=== PATIENT | female | born 1960 | race Caucasian/White ===

== ENCOUNTER 2025-07-25 07:51 | Day surgery (SDC) | payer MEDICARE, MEDICAID ==
--- NOTE | 2025-07-09 14:31 | ELECTROCARDIOGRAPH REPORT ---
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 WATSON Meng Measurements Intervals [place] Rate: 79 P: 61 W[place]: 180 QRS: -12 QRSD: 92 T: 50 QT: 388 QTc: 445 Interpretive Statements Sinus rhythm Ventricular trigeminy Probable left atrial enlargement Borderline low voltage, extremity leads Anteroseptal infarct, old Electronically Signed On 07-09-2025 17:33:[address] WATSON Meng Please click the below link to view image of tracing.
[2025-07-09 14:42] LABS: MEAN PLATELET VOLUME 7.9 FL (7.4-10.4); PRE OP HEMATOCRIT 42.8 % (35.0-45.0); PRE OP HEMOGLOBIN 15.2 g/dL (12.0-16.0); PRE OP PLATELET COUNT 312 X10'3 (140-440); PRE OP WHITE BLOOD COUNT 11.3 10'3 (4.8-10.8); RED CELL DISTRIBUTION WIDTH 14.2 % (11.5-14.5)
[2025-07-09 14:56] LABS: CREATININE 1.23 MG/DL (0.40-0.90); PRE OP ALT 21 U/L (30-65); PRE OP ANION GAP 5 (8-16); PRE OP AST 11 U/L (10-37); PRE OP BILIRUB, TOTAL 0.4 MG/DL (0.0-1.0); PRE OP GLUCOSE 96 MG/DL (70-104); PRE OP POTASSIUM 3.6 MMOL/L (3.4-5.1); PRE OP SODIUM 140 MMOL/L (135-145); TOTAL CARBON DIOXIDE 29.6 MMOL/L (24-32); eGFR 44 ML/MIN
[~2025-07-25] VITALS: Ht 162.6 cm; Wt 82.3 kg
[2025-07-25] VITALS (10 sets, daily range): BP systolic 110–155; BP diastolic 73–92; PULSE 67–95; RESP 9–18; TEMP 97.8; O2SAT 95–99
[2025-07-25] MEDS: ceFAZolin 2gm/dext,iso 50mL 50 ML IV ONE (05:30)
[~2025-07-25 07:51] MED LIST: ATOR20TA66 PO; BUPR1PAT22 TOP; CLON-570 PO; CYCL-1 PO; FURO20TA4 PO; GABA300C PO; LEVO112T5 PO; LOSA100T58 PO; LURA60TA4 PO; QUET25TA36 PO
[2025-07-25] MEDS: ringers solution, lacted 1,000 ML IV SCH (08:52)
[2025-07-25] MEDS ORDERED: LIDOcaine 1% (10mg/ml)w/preservative inj. 20ml MDV ONE (11:01)
[2025-07-25] MEDS ORDERED: methylene blue (5mg/ml) 50mg/10ml ampul IV ONE (11:01)
[2025-07-25] MEDS ORDERED: BUPIVAcaine 0.5% inj/PF 30 ML ONE (11:01)
[2025-07-25] MEDS ORDERED: BUPIVACAINE liposomal/PF 13.3 MG/ML 10mL vial IM ONE ×2 (11:02→11:44)
[2025-07-25] MEDS ORDERED: labetalol 20mg/4ml (5mg/ml) syringe IV PRN (11:30)
[2025-07-25] MEDS ORDERED: morphine 4 MG/ML inj SYRINge IV PRN (11:30)
[2025-07-25] MEDS ORDERED: hydrALAZINE 20mg/ml inj. IV PRN (11:30)
[2025-07-25] MEDS ORDERED: HYDROmorphone/PF 0.2 MG/ML SYRINGE IV PRN (11:30)
[2025-07-25] MEDS ORDERED: ringers solution, lacted 1,000 ML IV SCH (11:30)
[2025-07-25] MEDS ORDERED: ondansetron/PF 4mg/2ml inj IV PRN (11:30)
[2025-07-25] MEDS ORDERED: BUPIVAcaine/PF 2.5mg/ml (0.25%) 10ml vial ONE (11:44)
[2025-07-25] MEDS ORDERED: fentaNYL/PF 50MCG/1 ML 2ML syringe ONE (11:47)
[2025-07-25] MEDS ORDERED: midazolam 1 mg/ML 2ml injection ONE (11:47)
[2025-07-25] MEDS ORDERED: propofol inj 20 ML IV ONE (11:49)
[2025-07-25] MEDS ORDERED: dexamethasone sod phosphate 4mg/ml inj. ONE (13:25)
[2025-07-25] MEDS ORDERED: ondansetron/PF 4mg/2ml inj ONE (13:25)
[2025-07-25] MEDS: HYDROmorphone/PF 0.2 MG/ML SYRINGE IV PRN (14:36)
[2025-07-25] MEDS: acetaminophen 1,000mg/100ml IV 100 ML IV PRN (14:37)
--- NOTE | 2025-07-25 14:42 | OPERATIVE REPORT ---
Operative Report Providers to CC CC: GEORGE IRWIN DO ~ Date of Procedure: Jul 25, 2025 Pre-Operative Diagnosis: Right breast cancer, right atypical ductal hyperplasia, left atypical ducta Post-Operative Diagnosis SAME as PRE-Op Procedure Performed Right breast wireless LAURA nursing clerk localized lumpectomy at 12:00, right breast wire LAURA nursing clerk localized excisional biopsy at 1:00 and right axillary sentinel lymph node biopsy left breast wire localized excisional biopsy at 11:00 Surgeon: Dr. George irwin Technical Support Intern on call pharmacy technician Anesthesiologist: Jose [address] Street Findings: Right breast wire localized lumpectomy/excisional biopsy at 12:00 and 1:00 (two clips markers and two LAURA nursing clerk markers) Right axillary sentinel lymph node x1 Complications None Prosthetics\Implants used: None Estimated Blood Loss: Less than 10 mL Specimen Removed: 1. Right breast wireless localized excisional biopsy/lumpectomy at 12:00 and 1:00 2. Right breast additional superior medial margin 3. Right axillary sentinel lymph node x1 hot and blue 4. Left breast wireless localized excisional biopsy at 11:00 5. Left breast additional superior medial margin Description of Procedure: [place] was seen and evaluated in the office regarding left breast invasive ductal carcinoma. She had an extensive workout with a breast MRI and subsequent biopsies was diagnosed with right breast atypical ductal hyperplasia and left breast atypical ductal hyperplasia. She desired breast conservation and decided to move forward with the two procedures in the right breast and one in the left breast in addition to a sentinel lymph node biopsy of the right axilla. Informed consent was obtained. She had a sentinel lymph node injection this morning prior to arrival to the hospital. She was seen and evaluated in the pre operative holding unit by myself and the anesthesiologist. The right shoulder was marked my initials for the sentinel lymph node biopsy. She was taken in his the operative suite and placed on table in supine position with the arms extended. General anesthesia was administered with an LMA. A pecs one and two block was also administered on the right side. Both breasts were scanned with the LAURA probe in two hot areas were noted in the right breast and one in the left breast. I scanned the right axilla with the gamma probe and detected a hot signal from the Lymphoseek injection. 3 mL of methylene blue dye was injected subareolar in the right breast and massaged for 4 minutes. The patient was prepped and draped in a sterile fashion a time-out was performed and agreed upon. A proposed incision was made in the upper quadrant of the right breast the area was injected with 1% lidocaine. An incision was made with a 10 blade and extended through the deep dermal layer with the cutting on the cautery. Lenore retractors were placed on the edges of the incision as I dissected into the subcutaneous space and then switched to Yee retractors. The LAURA nursing clerk probe was used to guide the dissection by monitoring the signal. There was a slight difficulty differentiating between the two different laura markers. I incised the specimen down to the chest wall and oriented with short stitch superior, long suture lateral, double suture deep and placed it on the specimen radiograph board. The specimen was passed off the field and placed in the fact that trauma seen. There appeared to be to clips and two LAURA markers in the specimen. The medial aspect appeared to be slightly closer to the edge of the margin. This was the 1:00. I excised an additional superior medial margin. The specimen was marked suture at the final margin. Hemostasis was achieved with Bovie electrocautery. I turned my attention to the right axillary sentinel node biopsy. A proposed incision was made with a marking pen in the lower asp ect of the axilla and 1% lidocaine was injected. I made my incision with a 15 blade and dissected through the subcutaneous tissue into the axillary fascia with the cautery. Yee retractors were placed in the axilla as I scanned the axilla with the gamma probe a hot signal was noted and blue lymphatics were detected. The lymph node was secured with a tonsil clamp. And I excised it with the LigaSure. The specimen was removed and it had a count of almost 6000. The lymph node was placed in formalin. I scanned the axilla and there were some minimal inconsistent signal in the right axilla. The cavity was irrigated. Hemovac last product was placed in both the lumpectomy cavity and the axillary cavity. I then undermined some glandular tissue in the cavity for reapproximation of the acquired defect. The defect was reapproximated with 3-0 shelby Vicryl suture. The axillary cavity was approximated with 3-0 Vicryl interrupted sutures of the axillary fascia and the deep dermal layer. The skin was closed on both sites with 3-0 Vicryl interrupted suture and a 4-0 Monocryl running subcuticular stitch. Both incision sites were injected with a combination of Marcaine and Exparel. The Prineo dressing system with mesh and glue was placed on both incisions. I turned my attention to the left breast. Date of proposed incision at the superior aspect of the breast approximately 4 cm from the areolar edge. I scanned that area with the LAURA nursing clerk probe and marked the site with my marking pen. The incision was made with a 10 blade after the injection of 1% lidocaine. I dissected through the deep dermal layer with the cutting on the cautery and hemostasis was achieved with Bovie electrocautery. As I used the LAURA probe to guide the dissection I excised the breast tissue around the targeted signal. Once that was completely excised I removed the specimen from the cavity and oriented with short stitch superior, long suture lateral, double suture deep. The specimen was secured to the specimen radiograph board and placed in the fact that trauma machine. The two markers were identified which appeared to be slightly close to the superior medi al edge. I excised an additional superior medial margin and marked the final margin with a suture. The cavity was irrigated hemostasis was achieved with electrocautery she had some bleeding of the muscle for which that was the deep posterior margin. Hemostasis was achieved with Bovie electrocautery. I sprayed Vistaseal in this cavity after it was copiously irrigated to help with hemostasis. Cavity was reapproximated with 3-0 Vicryl suture. The skin was closed in the deep dermal layer 3-0 Vicryl suture and a running Monocryl subcuticular stitch. The Prineo dressing system was placed over this incision. All sites were dressed with sterile dressings and a balled flap to the right axilla. And a breast binder was placed on the patient. She tolerated the procedure well and was taken to recovery in stable condition all needle and sponge counts were correct. Counts repoted as correct: Yes GEORGE IRWIN DO Jul 25, 2025 14:42
[2025-07-25] MEDS: HYDROcodone/acetaminophen 5mg/325mg tablet PO ONE (15:19)
--- NOTE | 2025-08-01 09:52 | PATHOLOGY REPORT ---
[facility] [address] [place] [address] SURGICAL PATHOLOGY REPORT CaseNumber: [id number] Surgeon:Anais Doe M.D. CLINICAL INFORMATION CLINICAL INFORMATION: Malignant neoplasm breast. The patient has not had neoadjuvant therapy. DIAGNOSIS DIAGNOSIS: A.MASS AND BIOPSY SITE, RIGHT BREAST, SURGICAL LUM - INVASIVE DUCTAL CARCINOMA (INFERIOR ASPECT OF LUMPECTOMY) - GREATEST TUMOR DIMENSION: 1.1 CM - GRADE 1, PEÑA SCORE 4/9 - CLOSEST SURGICAL MARGIN (INFERIOR/LATERAL) CLEAR BY 0.7 CM - NO FEATURES OF VASCULAR INVOLVEMENT - BIOPSY SITE (SUPERIOR HALF) WITHOUT RESIDUAL ATYPICAL DUCTAL HYPERPLASIA - DIAGNOSIS SUPPORTED BY IMMUNOHISTOCHEMISTRY DIAGNOSIS: B.ADDITIONAL SUPERIOR/MEDIAL MARGINS, SURGICAL REE - BENIGN BREAST TISSUE DIAGNOSIS: C.SENTINEL LYMPH NODE, RIGHT AXILLARY, SURGICAL EX - BENIGN LYMPH NODE (0/1) - DIAGNOSIS SUPPORTED BY IMMUNOHISTOCHEMISTRY DIAGNOSIS: D.BIOPSY SITE, LEFT BREAST AT 11:00, SURGICAL LUMP - BIOPSY SITE ASSOCIATED WITH A BENIGN PAPILLOMA (0.1 CM) - NO RESIDUAL ATYPICAL DUCTAL HYPERPLASIA - NO OTHER DYSPLASTIC OR NEOPLASTIC FEATURES - CLOSEST SURGICAL MARGIN TO THE BIOPSY SITE (MEDIAL) CLEAR BY 0.6 CM DIAGNOSIS: E.ADDITIONAL SUPERIOR/MEDIAL MARGINS, SURGICAL REE - BENIGN BREAST TISSUE COMMENT NOTE: Please also refer to the patient's previous pathology reports ([id number] and [id number]), which owed a left breast fibroadenoma at 12:00, an area of atypical ductal hyperplasia involving the left b reast at 11:00, an area of atypical ductal hyperplasia involving the right breast at 1:00, and an are a of invasive ductal carcinoma involving the right breast at 12:00. NOTE: Please also refer to the patient's previous pathology reports ([id number] and [id number]), which owed a left breast fibroadenoma at 12:00, an area of atypical ductal hyperplasia involving the left b reast at 11:00, an area of atypical ductal hyperplasia involving the right breast at 1:00, and an are a of invasive ductal carcinoma involving the right breast at 12:00. NOTE: Please also refer to the patient's previous pathology reports ([id number] and [id number]), which owed a left breast fibroadenoma at 12:00, an area of atypical ductal hyperplasia involving the left b reast at 11:00, an area of atypical ductal hyperplasia involving the right breast at 1:00, and an are a of invasive ductal carcinoma involving the right breast at 12:00. NOTE: Please also refer to the patient's previous pathology reports ([id number] and [id number]), which sh owed a left breast fibroadenoma at 12:00, an area of atypical ductal hyperplasia involving the left b reast at 11:00, an area of atypical ductal hyperplasia involving the right breast at 1:00, and an are a of invasive ductal carcinoma involving the right breast at 12:00. NOTE: Please also refer to the patient's previous pathology reports ([id number] and [id number]), which sh owed a left breast fibroadenoma at 12:00, an area of atypical ductal hyperplasia involving the left b reast at 11:00, an area of atypical ductal hyperplasia involving the right breast at 1:00, and an are a of invasive ductal carcinoma involving the right breast at 12:00. MICROSCOPIC DESCRIPTION A. MASS AND BIOPSY SITE, RIGHT BREAST, SURGICAL LUM MICROSCOPIC DESCRIPTION: Reviewed are 12 H&E-stained slides showing sections of breast tissue. The sections of the biopsy site (A3-7) show some fibrocystic changes with occasional microcalcificat ions. An area of apocrine metaplasia is noted. There is an area of scar tissue formation with a tin y central cavity, consistent with a previous biopsy site. There are areas of usual ductal hyperplasi a. Small areas of adenosis are noted. However, no residual atypical ductal hyperplasia is identifie d. Immunohistochemistry for myoepithelial markers (SMM, CD10, and p40; A7) are also negative for inv asive tumor. The sections of the grossly described tumor (A8-12) shows an invasive ductal carcinoma measuring up to 1.1 cm. There is fairly common tubule formation (1). There are areas of moderate nuclear enlarge ment (2). Less than three mitotic figures are identified within 10 high-powered lay (1). No feat ures of vascular involvement are identified. The lateral surgical margin is clear by 0.7 cm, the pos terior by 0.8 cm, and the anterior by 1.0 cm. B. ADDITIONAL SUPERIOR/MEDIAL MARGINS, SURGICAL REE MICROSCOPIC DESCRIPTION: Reviewed are four H&E-stained slides showing sections of breast tissue witho ut tumor involvement. Occasional small areas of adenosis as well as occasional fibrocystic changes a re noted, along with a focus of apocrine metaplasia. Occasional microcalcifications are also noted. C. SENTINEL LYMPH NODE, RIGHT AXILLARY, SURGICAL EX MICROSCOPIC DESCRIPTION: Reviewed are three H&E-stained slides showing sections of lymph node tissue without tumor involvement (0/1). This diagnosis is supported by immunohistochemistry for AE1/AE3. D. BIOPSY SITE, LEFT BREAST AT 11:00, SURGICAL LUMP MICROSCOPIC DESCRIPTION: Reviewed are nine H&E-stain slides showing sections of breast tissue. Some of the ductal elements are associated with microcalcifications. Occasional fibrocystic changes and a reas of adenosis are noted. There is also a biopsy site, associated with scar tissue formation and a small 0.1 cm adjacent papilloma (D3-4). No residual features of atypical ductal hyperplasia are bright ntified. No other dysplastic or neoplastic features are identified. The blue inked medial surgical margin is clear of the biopsy site by 0.6 cm. The other surgical margins are more widely clear. The grossly described areas of nodularity (D8-9) show areas of dense stromal fibrocollagenous tissue dilan ng with fibrocystic changes, with some areas of fatty degeneration, but without dysplastic or neoplas tic features. E. ADDITIONAL SUPERIOR/MEDIAL MARGINS, SURGICAL REE MICROSCOPIC DESCRIPTION: Reviewed are three H&E-stain slides showing sections of breast tissue withou t tumor involvement. Areas associated with fibrocystic changes as well as small areas of adenosis ar e noted. GROSS DESCRIPTION A. MASS AND BIOPSY SITE, RIGHT BREAST, SURGICAL LUM GROSS DESCRIPTION: Received in a container of formalin labeled with the patient's name, number, and " right breast lumpectomy" is a 46 g oriented excision of fibrofatty breast tissue which measures 6 x 6 .5 x 2 cm. The superior margin is marked blue, the inferior margin is marked green, the medial margin is marked orange, the lateral margin is marked yellow, the anterior margin is marked red, and the po sterior margin is marked black. Sectioning reveals a previous biopsy site in the superior half of the specimen and a 1 x 1 x 1 cm barbosa-yung tumor which is present in the inferior half of the specimen. Th e tumor is present 0.6 cm from the posterior resection margin (closest resection margin). Sectioning the superior biopsy site reveals foreign material present (metallic clip). Sectioning the tumor revea ls foreign material present (metallic clip). Sections are submitted as follows:A1) Superior marginA2) Inferior marginA3) Medial margin superior biopsy siteA4) Lateral margin superior biopsy siteA5) Anterior margin superior biopsy siteA6-A7) Posterior margin superior biopsy siteA8) Medial margin inferior tumorA9) Lateral margin inferior vckyeH35) Inferior tumor with anterior [id number]) Inferior tumor with posterior margin B. ADDITIONAL SUPERIOR/MEDIAL MARGINS, SURGICAL REE GROSS DESCRIPTION: Received in a container of formalin labeled with the patient's name, number, and " Right breast superior medial margin" is a 25 gram oriented excision of fibrofatty breast tissue which measures 6 x 3.5 x 2 cm. There is a suture found marking the new margin. The new margin is inked bl ack. Sectioning fails to reveal a discrete mass lesion. Rough Carpenter sections are submitted as B1 -B5. C. SENTINEL LYMPH NODE, RIGHT AXILLARY, SURGICAL EX GROSS DESCRIPTION: Received in a container of formalin labeled with the patient's name, number, and " right axilla sentinel lymph node #" is a 1 cm blue stained lymph node candidate. The specimen is sect ioned and submitted as C1. The time at which the specimen was removed was 1238. The time at which the specimen was placed in formalin was 1250. D. BIOPSY SITE, LEFT BREAST AT 11:00, SURGICAL LUMP GROSS DESCRIPTION: Received in a container of formalin labeled with the patient's name, number, and " left breast wireless localized excisional biopsy @ 11:00" is a 22 g oriented excision of fibrofatty b reast tissue which measures 4 x 4.5 x 2.5 cm. There are sutures found identifying the superior, later al, and posterior aspects of the excision. The superior margin is marked blue, the inferior margin is marked green, the medial margin is marked orange, the lateral margin is marked yellow, the anterior margin is marked red, and the posterior margin is marked black. Sectioning reveals a previous biopsy site in the superior half of the specimen. Sectioning the biopsy site reveals foreign material presen t (metallic clip). There is additional ill-defined areas of nodularity noted inferior to the biopsy s ite. Sections are submitted as follows:D1) Superior marginD2) Inferior marginD3-D4) Med ial marginD5) Lateral marginD6) Anterior marginD7) Posterior marginD8-D9) A dditional areas of nodularity with anterior marginThe time at which the specimen was removed was 1340 . The time at which the specimen was placed in formalin was 1342. E. ADDITIONAL SUPERIOR/MEDIAL MARGINS, SURGICAL REE GROSS DESCRIPTION: Received in a container of formalin labeled with the patient's name, number, and " left breast Superior medial margin" is a 6 gram oriented excision of fibrofatty breast tissue which m easures 4 x 2.5 x 1.5 cm. There is a suture found marking the new margin. The new margin is marked b lack. Sectioning fails to reveal a discrete mass lesion. Rough Carpenter sections are submitted as E 1-E3. The time at which the specimen was removed was 1340. The time at which the specimen was placed in formalin was 1342. SYNOPTIC REPORT SYNOPTIC TEXT: INVASIVE CARCINOMA OF THE BREAST: Resection Specimen Procedure: Excision (less than total mastectomy) Specimen Laterality: Right Tumor Histologic Type: Invasive carcinoma of no special type (ductal) Histologic Grade ([place] Histologic Score): Glandular (Acinar) / Tubular Differentiation: Score 1 Nuclear Pleomorphism: Score 2 Mitotic Rate: Score 1 Overall Grade: Grade 1 (scores of 3, 4 or 5) Tumor Size: 1.1 Millimeters (mm) Ductal Carcinoma In Situ (DCIS): Not identified Lymphatic and / or Vascular Invasion: Not identified Treatment Effect in the Breast: No known presurgical therapy Margins Margin Status for Invasive Carcinoma: All margins negative for invasive carcinoma Distance from Invasive Carcinoma to Closest Margin: 7 mm Regional Lymph Nodes Regional Lymph Node Status: All regional lymph nodes negative for tumor Total Number of Lymph Nodes Examined (sentinel and non-sentinel): 1 Number of [place] Nodes Examined: 1 pTNM Classification (AJCC 8th Edition) pT Category: pT1a pN Category: pN0 CAP [facility] 2023 Q2 Release Electronically signed by: Yobani Espinosa M.D. 08/01/2025 9:14:00 AM
== END 2025-07-25 15:49 | disposition home or self-care (01) ==
LOC: PAS 07:51
PROVIDERS: ATTEND Surgery
DX: C50.411 Malignant neoplasm of upper-outer quadrant of right female breast (principal); D24.2 Benign neoplasm of left breast; G89.18 Other acute postprocedural pain; I25.2 Old myocardial infarction; I10 Essential (primary) hypertension; E03.9 Hypothyroidism, unspecified; E78.5 Hyperlipidemia, unspecified; F31.9 Bipolar disorder, unspecified; Z79.82 Long term (current) use of aspirin; Z79.890 Hormone replacement therapy; Z79.891 Long term (current) use of opiate analgesic; Z79.899 Other long term (current) drug therapy; Z90.710 Acquired absence of both cervix and uterus; Z98.890 Other specified postprocedural states
CPT/HCPCS: 19301; 36415; 38525; 38900; 64466; 76098; 80053; 82948; 85025; 88307; 88341; 88342; 93005; A4215; A4618; A6258; A6402; A7000; J0131; J0666; J1100; J1171; J2250; J2405; J2704; J3010; J3490; J7030; J7120; Q9968; Z7506; Z7508; Z7512; Z7610; A6449